=== PATIENT | female | born 1940 | race Caucasian/White ===

== ENCOUNTER 2016-06-06 12:14 | Outpatient (CLI) | payer OTHER ==
--- NOTE | 2016-06-06 13:23 | DIAGNOSTIC IMAGING REPORT ---
PROCEDURE: CT ABD/PELVIS WITH CONTRAST CLINICAL INDICATION: Lower abdominal pain and diarrhea, initial encounter. TECHNIQUE: 100 ml of Isovue 300 were injected intravenously and axial images were obtained of the entire abdomen and pelvis with sagittal and coronal reformations. COMPARISON: None. FINDINGS: ABDOMEN: Lung bases are clear. Heart size is normal. Hepatic steatosis. 2.6 cm cyst in the dome of the liver. Gallbladder, pancreas, spleen, adrenal glands and right kidney are normal. Left renal cyst. Mild atherosclerosis of the aorta. PELVIS: Appendectomy. Mild sigmoid diverticulosis. Uterus, adnexa and bladder are unremarkable. There is no pelvic mass, inflammatory changes or free fluid. Grade 1 L4-5 anterolisthesis and mild degenerative changes. IMPRESSION: 1. Hepatic steatosis and hepatic cyst 2. Mild sigmoid diverticulosis 3. No acute changes 4. Results discussed with NICOLAS Ann All CT scans at this facility use dose modulation, iterative reconstruction, and/or weight-based dosing when appropriate to reduce radiation dose to as low as reasonably achievable.
== END 2016-06-06 23:00 ==
LOC: CT SRH 12:14
DX: K76.0 Fatty (change of) liver, not elsewhere classified (principal); K76.89 Other specified diseases of liver; K57.30 Diverticulosis of large intestine without perforation or abscess without bleeding